=== PATIENT | male | born 1995 | race Caucasian/White ===

== ENCOUNTER 2018-10-27 07:59 | Emergency (ER) | payer OTHER ==
[~2018-10-27] VITALS: Ht 175.3 cm; Wt 75.0 kg
[2018-10-27 07:59] VITALS: BP 112/55
[2018-10-27] MEDS ORDERED: KETOROLAC 30 MG/1 ML ONE (08:52)
[2018-10-27] MEDS ORDERED: KETOROLAC 30 MG/1 ML IM ONE (09:00)
[2018-10-27 09:23] LABS: RAPID INFLUENZA A Negative (Negative); RAPID INFLUENZA B Negative (Negative)
== END 2018-10-27 09:53 | disposition home or self-care (01) ==
LOC: ED 09:32
DX: B34.9 Viral infection, unspecified (principal); R50.81 Fever presenting with conditions classified elsewhere
CPT/HCPCS: 71046; 87081; 87400; 87880; 96372; 99284; J1885